=== PATIENT | male | born 1950 | race African-American/Black ===

== ENCOUNTER → 2022-02-10 | Day surgery (SDC) | payer BC | END | disposition home or self-care (01) | LOC: JRADUS-SUR 07:36 → EDSTATUS 08:15 | PROVIDERS: ATTEND Internal Medicine Hematology & Oncology | PROC: 0H9U3ZX Drainage of Left Breast, Percutaneous Approach, Diagnostic (ICD-10-PCS; principal; 2022-02-10) | DX: C91.10 Chronic lymphocytic leukemia of B-cell type not having achieved remission (principal) | CPT/HCPCS: 19083; 76642-TC-50; 87899; 88305-TC; 88342-TC ==